=== PATIENT | male | born 1945 | race Caucasian/White ===

== ENCOUNTER → 2023-12-08 08:47 | Outpatient (REF) | payer MEDICARE, BC, SELFPAY ==
[2023-12-08 09:37] LABS: Osmolality Urine 640 mOsm/kg (300-900)
[2023-12-08 09:40] LABS: Osmolality Serum 279 mOsm/kg (275-300)
[2023-12-08 10:02] LABS: Blood Urea Nitrogen 16 mg/dl (9-20); Calcium 9.6 mg/dl (8.4-10.2); Carbon Dioxide 26 mmol/L (22-30); Chloride 97 mmol/L (98-107); Glucose 98 mg/dl (70-99); Potassium 4.6 mmol/L (3.5-5.1); Sodium 132 mmol/L (135-145); eGFR > 60.00
[2023-12-10 23:12] LABS: Oxcarbazepine Metabolite 18 ug/mL (3-35)
== END ==
LOC: REG 08:47
PROVIDERS: ATTENDING PHYSICIAN Specialist; FAMILY PHYSICIAN Family Medicine
DX: E87.1 Hypo-osmolality and hyponatremia (principal); G40.009 Localization-related (focal) (partial) idiopathic epilepsy and epileptic syndromes with seizures of localized onset, not intractable, without status epilepticus
CPT/HCPCS: 36415; 80048; 80183; 83930; 83935

== ENCOUNTER 2024-03-21 07:33 | Inpatient (IN) | payer MEDICARE, BC, SELFPAY ==
--- NOTE | 2024-02-13 11:50 | CM ---
Addendum entered by Mandy Small 03/16/24 08:26:
Referrals sent to both [facility] and [facility]. Navigator will follow up with both after surgery once discharge plan is finalized.
Original Note:
Patient is scheduled for an elective L TKR on 03/21/24. Spoke with patient prior to surgery via telephone. Patient had a R THR (2009) and L THR (2019) at . Reintroduced role of Orthopedic Navigator. Patient reports that he lives alone in a one floor
apartment. There is one step to enter. He currently functions independently. He uses a cane when he walks his dog. He also has a rolling walker, raised toilet seat and hip kit. He has had VN services through [facility] and has been in [facility] for rehab.
PCP is Latisha Alicia.
Discussed orthopedic program and post surgical plans. Reviewed anticipated length of stay and that goal is for him to return home at discharge. Also reviewed outpatient PT. Patient is in agreement with tentative plan but is concerned about going
home since he lives alone and has no one who can provide support. Reassured him that his post op progress will be monitored and if he isn't able to care for him self then an alternative plan will be put in place. If able to go home, he selects
VN. If he needs SNF, he would like to go to [facility].
Patient will complete online education.
Plan: Orthopedic Navigator will remain available to assist with the care of patient and will reassess discharge needs after surgery.
[2024-02-27 12:14] VITALS: BMI 28.7
[2024-02-27 13:32] LABS: Hematocrit 34.8 % (39.0-52.0); Mean Corp Hgb Conc. 34.5 g/dL (33.0-37.0); Mean Corpuscular Hgb 30.8 pg (27.0-31.0); Mean Corpuscular Volume 89.5 fL (80.0-94.0); Mean Platelet Volume 9.8 fL (7.4-10.4); Platelet Count 199 10^3/uL (130-400); Red Blood Cell Count 3.89 10^6/uL (4.70-6.10); Red Cell Dist. Width 13.3 % (11.5-14.5); White Blood Cell Count 4.9 10^3/uL (4.8-10.8)
[2024-02-27 13:59] LABS: ALT (SGPT) 23 U/L (0-50); AST (SGOT) 32 U/L (17-59); Albumin 4.1 g/dl (3.5-5.0); Alkaline Phosphatase 108 U/L (38-126); Blood Urea Nitrogen 15 mg/dl (9-20); Calcium 9.8 mg/dl (8.4-10.2); Carbon Dioxide 23 mmol/L (22-30); Chloride 94 mmol/L (98-107); Estimated Creatinine Clearance 104 ml/min; Glucose 85 mg/dl (70-99); Potassium 5.1 mmol/L (3.5-5.1); Sodium 126 mmol/L (135-145); Total Bilirubin 0.4 mg/dl (0.2-1.3); Total Protein 6.4 g/dl (6.3-8.2); eGFR > 60.00
[2024-02-27 15:17] VITALS: BMI 28.7
--- NOTE | 2024-02-28 09:09 | PTCARENOTE ---
Pt called office, he verified he does take aspirin 650mg every morning for pain management. He was instructed to decrease to 325mg starting 7 days prior to surgery per Mary Mckenzie's instruction. Pt verbalized understanding.
[2024-02-28 09:22] LABS: Glycohemoglobin (HgbA1c) 5.3 % (4.0-5.6)
--- NOTE | 2024-03-19 16:00 | PTCARENOTE ---
Abn Na+, Dr. Castañeda notified, no new requests.
[2024-03-21] VITALS (18 sets, daily range): BP systolic 112–169; BP diastolic 59–92; PULSE 76–79; O2SAT 99
[2024-03-21 07:53] LABS: Glucose - Point of Care 100 mg/dl (70-99)
[2024-03-21] MEDS: NORMOSOL-R 1000 IV ×2 (07:58→12:06)
[2024-03-21] MEDS: CELEBREX 200 MG PO (07:59)
[2024-03-21] MEDS: TYLENOL 650 MG PO ×3 (08:01→19:53)
[2024-03-21 10:22] LABS: Glucose - Point of Care 88 mg/dl (70-99)
[2024-03-21] MEDS: ULTRAM 50 MG PO ×3 (11:37→21:09)
--- NOTE | 2024-03-21 13:16 | PTCARENOTE ---
Pt arrived to [facility] [address] from PACU s/p L TKR. Pt states no pain at this time. R knee aquacel C/D/I, NV intact, IVF infusing. Pt oriented to call yap and room, bed locked and in lowest position, call yap within reach.
[2024-03-21] MEDS: COMPAZINE IV (13:23)
[2024-03-21] MEDS: TYLENOL PO (13:30)
--- NOTE | 2024-03-21 13:53 | CM ---
Patient admitted on this date for L TKR. Request for CM consult for discharge plan of care. Ortho CM previously sent referrals for HH and STR to [facility]. Need to await therapy recommendations.
[2024-03-21] MEDS: TORADOL IV (14:04)
--- NOTE | 2024-03-21 15:16 | PTCARENOTE ---
Pt became hypotensive during PT. Pt put back to bed with head down and legs elevated. BP has improved to 122/65. DEB Mckenzie aware. Midodrine ordered.
[2024-03-21] MEDS: NEURONTIN 300 MG PO ×2 (15:34→21:08)
[2024-03-21] MEDS: COMPAZINE 5 MG IV ×2 (15:35→19:54)
[2024-03-21] MEDS: ANCEF 5 IV (15:35)
[2024-03-21] MEDS: ASPIRIN 325 MG PO (17:24)
[2024-03-21] MEDS: ProAmatine PO (17:30)
[2024-03-21] MEDS: SENOKOT 17.1999999999999993 MG PO (19:53)
[2024-03-21] MEDS: TRILEPTAL 600 MG PO (19:54)
[2024-03-21] MEDS: DECADRON 4 MG PO (19:54)
[2024-03-21] MEDS: COLACE 100 MG PO (19:54)
[2024-03-21] MEDS: BACTROBAN 2% OINTMENT 1 APPLIC NASAL (19:54)
[2024-03-21] MEDS: METAMUCIL, KONSYL 1 PACKET PO (19:54)
[2024-03-21] MEDS: TORADOL 15 MG IV (20:00)
[2024-03-21] MEDS: PROTONIX 40 MG PO (21:08)
[2024-03-21] MEDS: LIPITOR 80 MG PO (21:08)
[2024-03-21] MEDS: LIORESAL 2.5 MG PO (22:37)
[2024-03-22] VITALS (9 sets, daily range): BP systolic 85–154; BP diastolic 52–86; PULSE 79–102; O2SAT 99
[2024-03-22] MEDS: ANCEF 5 IV (00:43)
[2024-03-22] MEDS: TYLENOL PO ×2 (00:49→04:43)
[2024-03-22] MEDS: ProAmatine 5 MG PO (08:17)
[2024-03-22] MEDS: SENOKOT 17.1999999999999993 MG PO ×2 (08:18→19:38)
[2024-03-22] MEDS: FLOMAX 0.400000000000000022 MG PO (08:18)
[2024-03-22] MEDS: TYLENOL 650 MG PO ×4 (08:19→19:38)
[2024-03-22] MEDS: DECADRON 4 MG PO ×2 (08:19→19:38)
[2024-03-22] MEDS: TRILEPTAL 600 MG PO ×2 (08:19→19:38)
[2024-03-22] MEDS: ASPIRIN 325 MG PO (08:19)
[2024-03-22] MEDS: MOBIC 15 MG PO (08:19)
[2024-03-22] MEDS: NEURONTIN 300 MG PO ×3 (08:19→22:12)
[2024-03-22] MEDS: COLACE 100 MG PO ×2 (08:20→19:38)
[2024-03-22] MEDS: ULTRAM 50 MG PO ×3 (08:20→22:12)
[2024-03-22] MEDS: METAMUCIL, KONSYL 1 PACKET PO ×2 (08:20→19:39)
[2024-03-22] MEDS: MIRALAX 17 GRAMS PO (08:20)
[2024-03-22] MEDS: TORADOL 15 MG IV (08:21)
[2024-03-22] MEDS: COMPAZINE 5 MG IV (08:21)
[2024-03-22] MEDS: BACTROBAN 2% OINTMENT 1 APPLIC NASAL ×2 (08:22→19:38)
--- NOTE | 2024-03-22 08:48 | CM ---
Reviewed chart and held rounds with PT, OT and nursing. Patient admitted as planned for elective L TKR. Met with patient at bedside. Confirmed information previously obtained for assessment. Also discussed discharge plans. The plan is for patient to
return home at discharge with VNA or go to [facility] as he lives alone. Reviewed VN services including start of care (tentatively 03/23/24), services to be ordered (PT, SN) and frequency/duration of services. Options list provided and PAC data reviewed.
Patient selects VN.
Patient has a rolling walker, raised toilet seat and hip kit.
VN referral was completed and sent to [facility] through [employer] with request for start of care on 03/23/24. Confirmation received of their ability to accept case. reservation clerk to fax discharge instructions to VN when complete.
Referral also sent to [facility] and will update referral after PT OT sessions today.
Patient will use [facility] if he goes home but if [facility] will switch to SNF pharmacy for discharge prescriptions.
--- NOTE | 2024-03-22 09:44 | W.PN.ORTHO ---
Today's Communication / Plan
-
d/c when stable
Assessment
.
Distal Motor Intact: Yes
Dressing:
Clean, dry and intact.
Assessment:
Orthostasis-Midodrine + IVF
Nausea-resolved w/ current regimen
Spasm-+ Baclofen
Plan
.
Surgery / Date: O/A s/p L TKA Dr. Myers 03/21/24
DVT Prophylaxis: Aspirin
Activity:
Out of bed.
PT/OT
Discharge Plan: SNF
Subjective
.
.:
Patient resting comfortably.
Spasm overnight
Vital Signs and Labs
.
Vital Signs and Labs:
Lab Results
02/27/24 12:11
02/27/24 12:11
Temp Pulse Resp BP Pulse Ox
97.7 F 74 18 138/66 97
03/22/24 07:00 03/22/24 07:00 03/22/24 07:00 03/22/24 08:21 03/22/24 07:00
Non-invasive Hgb result: 9.3
Physical Exam
-
HEENT: No pallor, cyanosis, or jaundice. Throat clear.
NECK: Supple. No JVD.
RESPIRATORY: Lungs clear to auscultation.
CVS: S1, S2 normal. RRR.� No murmur, rub or gallop.
ABDOMEN: Soft, non-tender. No distension. BS+/normal.
EXTREMITIES: strength equal, no calf pain with palpation
DIFFUSION OPERATOR: AOx3. No focal deficits. executive assistant to president grossly intact
--- NOTE | 2024-03-22 09:56 | W.DS.TRANS ---
DC Summary - Delivery Tech
-
Discharge Instructions:
Sleep Apnea Risk Intermediate
Discharge Diagnosis/Procedures O/A s/p L TKA Dr. Myers 03/21/24
Diet Diabetic, Carb Controlled
Activity As tolerated,With assistance,With Walker
Driving Restrictions No driving
Bathing Restrictions OK to Shower
Instructions:
Stand-Alone Forms: Total Hip/Knee Replacement D/C
Changes to Home Medications: Yes
Discharge Medications:
DC Medications w/original date entered in [employer]
multivitamin with folic acid 400 mcg tablet (Tab-A-Riana) 1 tab PO DAILY@1200 Supplement ##0 06/27/19
psyllium husk 0.4 gram capsule (Fiber (psyllium husk)) 0.4 gm PO BID Constipation 04/28/20
atorvastatin 80 mg tablet 80 mg PO HS High Cholesterol 02/20/24
omega-3 fatty acids 500 mg capsule 500 mg PO BID Supplement 02/20/24
oxcarbazepine 600 mg tablet,extended release 24 hr 600 mg PO BID Seizures 02/20/24
polyethylene glycol 3350 17 gram oral powder packet (Miralax) 17 g PO DAILY Constipation 02/20/24
tirzepatide 15 mg/0.5 mL subcutaneous pen injector (Mounjaro) 15 mg SC QWEEK Diabetes 02/20/24
vilazodone 40 mg tablet 40 mg PO DAILY Depression 02/20/24
mupirocin 2 % topical ointment 1 applic topical BID infection prevention #1 tube 02/27/24
tamsulosin 0.4 mg capsule 0.4 mg PO HS #7 caps 02/27/24
Saccharomyces boulardii 250 mg capsule (Florastor) 250 mg PO BID #1 cap 03/22/24
acetaminophen 325 mg capsule (Tylenol) 650 mg (2 x 325 mg) PO QID #2 caps 03/22/24
aspirin 325 mg tablet 325 mg PO DAILY blood clot prevention #1 tab 03/22/24
baclofen 10 mg tablet 10 mg PO HS spasm #7 tabs 03/22/24
cefadroxil 500 mg capsule 500 mg PO BID infection prevention #14 caps 03/22/24
docusate sodium 100 mg capsule (Colace) 100 mg PO BID stool softner #1 cap 03/22/24
famotidine 20 mg tablet 20 mg PO HS GI prophylaxis #30 tabs 03/22/24
gabapentin 300 mg capsule 300 mg PO HS sleep/pain #10 caps 03/22/24
lisinopril 10 mg tablet 10 mg PO DAILY #30 tabs 03/22/24
magnesium hydroxide 400 mg/5 mL oral suspension (Milk of Magnesia) 30 ml PO HS PRN Constipation #1 mL 03/22/24
meloxicam 15 mg tablet 15 mg PO DAILY anti-inflammatory #14 tabs 03/22/24
ondansetron 4 mg disintegrating tablet 4 mg PO Q6H PRN n/v #20 tabs 03/22/24
sennosides 8.6 mg tablet (Senokot) 17.2 mg (2 x 8.6 mg) PO BID laxative #2 tabs 03/22/24
tramadol 50 mg tablet 50 mg PO Q6H PRN 1 tab moderate pain, 2 if severe #30 tabs 03/22/24
Home Medication Changes
baclofen 10 mg tablet 10 mg PO HS spasm #7 tabs 03/22/24
cefadroxil 500 mg capsule 500 mg PO BID infection prevention #14 caps 03/22/24
famotidine 20 mg tablet 20 mg PO HS GI prophylaxis #30 tabs 03/22/24
gabapentin 300 mg capsule 300 mg PO HS sleep/pain #10 caps 03/22/24
lisinopril 10 mg tablet 10 mg PO DAILY #30 tabs 03/22/24
meloxicam 15 mg tablet 15 mg PO DAILY anti-inflammatory #14 tabs 03/22/24
ondansetron 4 mg disintegrating tablet 4 mg PO Q6H PRN n/v #20 tabs 03/22/24
tramadol 50 mg tablet 50 mg PO Q6H PRN 1 tab moderate pain, 2 if severe #30 tabs 03/22/24
Pending Results: No
[2024-03-22] MEDS: NSS 250 IV (10:34)
[2024-03-22] MEDS: LIORESAL 10 MG PO ×2 (10:34→19:38)
[2024-03-22] MEDS: DECADRON 2 MG IV (10:34)
[2024-03-22] MEDS: COMPAZINE IV (20:36)
[2024-03-22] MEDS: PROTONIX 40 MG PO (22:12)
[2024-03-22] MEDS: LIPITOR 80 MG PO (22:12)
[2024-03-23] VITALS (7 sets, daily range): BP systolic 103–141; BP diastolic 61–75; PULSE 66–110; O2SAT 99
[2024-03-23] MEDS: TYLENOL PO ×2 (00:59→23:22)
[2024-03-23] MEDS: TYLENOL 650 MG PO ×5 (03:39→19:57)
[2024-03-23] MEDS: MIRALAX 17 GRAMS PO (08:15)
[2024-03-23] MEDS: METAMUCIL, KONSYL 1 PACKET PO ×2 (08:15→19:58)
[2024-03-23] MEDS: FLOMAX 0.400000000000000022 MG PO (08:18)
[2024-03-23] MEDS: ASPIRIN 325 MG PO (08:18)
[2024-03-23] MEDS: COMPAZINE 5 MG PO (08:18)
[2024-03-23] MEDS: SENOKOT 17.1999999999999993 MG PO ×2 (08:18→19:59)
[2024-03-23] MEDS: DECADRON 4 MG PO ×2 (08:19→19:58)
[2024-03-23] MEDS: COLACE 100 MG PO ×2 (08:19→19:58)
[2024-03-23] MEDS: LIORESAL 10 MG PO ×2 (08:19→19:59)
[2024-03-23] MEDS: ULTRAM 50 MG PO (08:19)
[2024-03-23] MEDS: MOBIC 15 MG PO (08:19)
[2024-03-23] MEDS: NEURONTIN 300 MG PO ×2 (08:19→22:40)
[2024-03-23] MEDS: TRILEPTAL 600 MG PO ×2 (08:20→19:58)
[2024-03-23] MEDS: COMPAZINE IV ×2 (08:20→19:58)
--- NOTE | 2024-03-23 09:15 | CM ---
Addendum entered by VIRGEN Colon 03/23/24 09:40:
SPoke to Crystal in admissions at [facility]. SHe will have bed Tuesday for patient.
Report [phone]
fax [phone]
IMM done Tuesday.
Original Note:
Reviewed chart and held rounds with PT, OT and nursing. Patient admitted as planned for elective L TKR. Met with patient at bedside. Confirmed information previously obtained for assessment. Also discussed discharge plans. The plan is for patient to
go to SNF rehab at [facility].
Patient has a rolling walker, raised toilet seat and hip kit.
Referral was updated to [facility] yesterday.
Patient will use [facility] if he goes home but if [facility] will switch to SNF pharmacy for discharge prescriptions.
--- NOTE | 2024-03-23 10:44 | W.PN.ORTHO ---
Today's Communication / Plan
-
d/c am if stable
Assessment
.
Distal Motor Intact: Yes
Dressing:
Clean, dry and intact.
Assessment:
Orthostasis-Midodrine + IVF-resolved
Nausea-resolved w/ current regimen
Spasm-+ Baclofen-resolved
Plan
.
Surgery / Date: O/A s/p L TKA Dr. Myers 03/21/24
DVT Prophylaxis: Aspirin
Activity:
Out of bed.
PT/OT
Discharge Plan: SNF
Subjective
.
.:
Patient resting comfortably.
Vital Signs and Labs
.
Vital Signs and Labs:
Lab Results
02/27/24 12:11
02/27/24 12:11
Temp Pulse Resp BP Pulse Ox
97.4 F 74 17 131/74 98
03/23/24 07:48 03/23/24 07:48 03/23/24 07:48 03/23/24 10:08 03/23/24 08:20
Non-invasive Hgb result: 10.6
Physical Exam
-
HEENT: No pallor, cyanosis, or jaundice. Throat clear.
NECK: Supple. No JVD.
RESPIRATORY: Lungs clear to auscultation.
CVS: S1, S2 normal. RRR.� No murmur, rub or gallop.
ABDOMEN: Soft, non-tender. No distension. BS+/normal.
EXTREMITIES: strength equal, no calf pain with palpation
DIE STAMPING PRESS OPERATOR: AOx3. No focal deficits. python java developer grossly intact
--- NOTE | 2024-03-23 10:46 | W.PN.UPDATE ---
Update Note
Progress Note Update
*Ultram sent to [facility] pharmacy
*d/c instructions and med rec complete
*D/c summary dictated
[2024-03-23] MEDS: ProAmatine 5 MG PO ×2 (12:18→17:57)
[2024-03-23] MEDS: LIPITOR 80 MG PO (22:41)
[2024-03-23] MEDS: PROTONIX 40 MG PO (22:41)
[2024-03-24] MEDS: TYLENOL PO (04:51)
[2024-03-24] MEDS: ProAmatine PO (07:39)
[2024-03-24] MEDS: MIRALAX 17 GRAMS PO (07:39)
[2024-03-24] MEDS: MILK OF MAGNESIA 30 ML PO (07:40)
[2024-03-24] MEDS: SENOKOT 17.1999999999999993 MG PO (07:41)
[2024-03-24] MEDS: TYLENOL 650 MG PO ×2 (07:41→11:10)
[2024-03-24] MEDS: TRILEPTAL 600 MG PO (07:41)
[2024-03-24] MEDS: FLOMAX 0.400000000000000022 MG PO (07:41)
[2024-03-24] MEDS: ASPIRIN 325 MG PO (07:41)
[2024-03-24] MEDS: LIORESAL 10 MG PO (07:42)
[2024-03-24] MEDS: COMPAZINE IV (07:42)
[2024-03-24] MEDS: COLACE 100 MG PO (07:42)
[2024-03-24] MEDS: MOBIC 15 MG PO (07:42)
[2024-03-24] MEDS: DECADRON 4 MG PO (07:42)
[2024-03-24] MEDS: METAMUCIL, KONSYL 1 PACKET PO (07:47)
[2024-03-24 08:07] VITALS: BP 150/75
--- NOTE | 2024-03-24 08:07 | W.PN.UPDATE ---
Update Note
Progress Note Update
Mr. Coyle is POD3 following his left total knee arthroplasty performed by Dr. Myers. He is resting comfortably in his chair this morning. He reports he is doing well, and his pain is well controlled at present. He is scheduled for transfer to [facility] this afternoon.
Surgical dressing clean, dry and intact. No significant tenderness to palpation about the knee. Calf soft and nontender. NVID.
Ok for dc from orthopedic perspective. Orders in. Patient to follow up outpatient at 2 weeks post-op.
[2024-03-24 09:15] VITALS: BP 130/76
[2024-03-24 11:05] VITALS: BP 151/79
--- NOTE | 2024-03-24 12:56 | CM ---
Patient has been medically cleared for discharge to [facility]. Transport scheduled for 1:00PM.
== END 2024-03-24 11:46 | DRG 470 ==
LOC: 2 SOUTH 07:33
PROVIDERS: ADMITTING PHYSICIAN Orthopaedic Surgery; FAMILY PHYSICIAN Family Medicine
PROC: 0SRD069 Replacement of Left Knee Joint with Oxidized Zirconium on Polyethylene Synthetic Substitute, Cemented, Open Approach (ICD-10-PCS; 2024-03-21)
DX: M17.12 Unilateral primary osteoarthritis, left knee (principal)
CPT/HCPCS: 36415; 73560; 80053; 82962; 83036; 85027; 87070; 97110; 97116; 97162; 97166; 97530; 97535; C1713; C1776

== ENCOUNTER 2024-03-25 09:35 | Emergency (ER) | payer MEDICARE, BC, SELFPAY ==
[2024-03-25] VITALS (24 sets, daily range): BP systolic 101–173; BP diastolic 41–108
[2024-03-25 09:56] LABS: % Basophils 0.6 % (0-2); % Eosinophils 4.1 % (0-6); % Immature Granulocytes 0.4 % (0-0.5); % Lymphocytes 16.8 % (20.5-51.1); % Neutrophils 74.1 % (42.2-75.2); Absolute Eosinophils 0.3 10^3/uL (0-0.7); Absolute Lymphocytes 1.1 10^3/uL (1.2-3.4); Absolute Monocytes 0.3 10^3/uL (0.1-0.6); Hematocrit 22.5 % (39.0-52.0); Mean Corp Hgb Conc. 35.6 g/dL (33.0-37.0); Mean Corpuscular Volume 87.2 fL (80.0-94.0); Mean Platelet Volume 9.4 fL (7.4-10.4); Nucleated Red Blood Cells % 0 % (-); Platelet Count 176 10^3/uL (130-400); Red Blood Cell Count 2.58 10^6/uL (4.70-6.10); Red Cell Dist. Width 14.1 % (11.5-14.5); White Blood Cell Count 6.8 10^3/uL (4.8-10.8)
[2024-03-25 10:08] LABS: ALT (SGPT) 22 U/L (0-50); AST (SGOT) 33 U/L (17-59); Alkaline Phosphatase 76 U/L (38-126); Blood Urea Nitrogen 12 mg/dl (9-20); Calcium 8.8 mg/dl (8.4-10.2); Carbon Dioxide 22 mmol/L (22-30); Chloride 93 mmol/L (98-107); Estimated Creatinine Clearance 104 ml/min; Glucose 126 mg/dl (70-99); Potassium 3.8 mmol/L (3.5-5.1); Sodium 124 mmol/L (135-145); Total Bilirubin 0.6 mg/dl (0.2-1.3); Total Protein 5.3 g/dl (6.3-8.2); eGFR > 60.00
--- NOTE | 2024-03-25 11:20 | ED.GENMED ---
History of Present Illness
General
Chief Complaint: Fainting/Passed Out
Source: patient
Time Seen by Provider: 03/25/24 09:58
Travel History
Have you had any contact with someone who has COVID-19?: No
Do you have any symptoms of coronavirus? Fever > 100 degrees, chills, cough, shortness of breath, sore throat, loss of taste or smell, muscle aches, or headache?: No
History of Present Illness
History of Present Illness:
79-year-old male presents to the emergency room after having what sound like a syncopal episode at physical therapy. Patient is at [facility] receiving physical therapy and rehab after having a knee replacement. He was discharged yesterday. Surgery
was on March 21. Patient was evidently urinating at the time. He has a history of 1 seizure many years ago for which he takes Trileptal. It does not sound like he had tonic-clonic type activity today. He had no incontinence or tongue injury.
Patient feels weak but back to his baseline.
Past History
Past History
ED Past Medical History: Hypercholesterolemia, Seizures and Other (Prostate hypertrophy, osteoarthritis, degenerative joint disease)
ED Past Surgical History: Orthopedic (Right hip arthroplasty, left total hip), Tonsilectomy and Other (Left eye surgery, cataract surgery)
Social History
Tobacco: Non-smoker
Alcohol: None
Drug: None
Living: with family
Phy Exam
Physical Exam
Physical Exam:
General: Awake, Alert, Oriented X3. Appears chronically ill, pale complexion
Vitals: Borderline blood pressure
Head: Atraumatic
Eyes: Pupils equal, EOMI
Throat: Airway intact, no exudates
Neck: Trachea midline
Lungs: Clear and equal b/l
Heart: Regular rate, no murmurs
Abd: Soft, Nontender, No pulsatile mass
Rectal: Heme-negative brown stool
Neuro: Nonfocal
Skin: Warm, dry, no rash
Extremities: Dressing intact left knee. Skin around the dressing appears normal, there is no erythema or unexpected swelling
Course
Orders/Labs/Results
Orders:
Orders
03/25/24 09:37
Electrocardiogram (*1) Urgent
Reason for Study: Syncope
03/25/24 09:38
EKG- Treatment ONCE
03/25/24 09:47
Complete Blood Count/With Diff Urgent
Comprehensive Metabolic Panel Urgent
03/25/24 11:20
Blood Bank Products [* Blood Bank Products] Urgent
Blood Bank Products: *Packed RBC Leuko(PRBC's)
Quantity: 1
Transfuse Today: Yes
Reason: Anemia
03/25/24 11:27
Type+Screen Urgent
03/25/24 13:46
Oxycodone [Roxicodone] 5 mg PO NOW STA
Abnormal Lab Results
03/25/24 03/25/24
09:47 11:27
RBC 2.58 L 10^6/uL
(4.70-6.10)
Hgb 8.0 L g/dL
(13.0-18.0)
Hct 22.5 L %
(39.0-52.0)
Absolute Lymphs (auto) 1.1 L 10^3/uL
(1.2-3.4)
Lymphocytes % 16.8 L %
(20.5-51.1)
Sodium 124 L mmol/L
(135-145)
Chloride 93 L mmol/L
(98-107)
Glucose 126 H mg/dl
(70-99)
Total Protein 5.3 L g/dl
(6.3-8.2)
Albumin 3.0 L g/dl
(3.5-5.0)
Crossmatch IS Only See Detail
03/25/24 09:47
03/25/24 09:47
Vital Signs
Initial and Last Documented VS:
Initial Vital Signs
Temp Pulse Resp BP Pulse Ox
97.8 F 67 18 119/47 95
03/25/24 09:38 03/25/24 09:38 03/25/24 09:38 03/25/24 09:38 03/25/24 09:38
Last Documented Vital Signs
Temp Pulse Resp BP Pulse Ox
97.9 F 63 14 120/46 96
03/25/24 14:09 03/25/24 14:09 03/25/24 14:09 03/25/24 14:09 03/25/24 14:09
MDM/Problems Addressed
Differential Diagnosis Includes:
CVA, seizure, ventricular dysrhythmia, vasovagal event
MDM/Problems Addressed:
Patient presents after having a event where he collapsed at home. His thought he might have been in cardiac arrest and did CPR. He arrives to the emergency room confused. Stroke alert was called. CT of the head shows nothing acute.
Neurology evaluation performed by Dr. Vallejo who questions whether this could have been a ischemic event, seizure or some other reason to have a loss of consciousness. Patient has slowly seem to return to his baseline. He does not typically seek
medical care. Patient will be hospitalized for monitoring of possible dysrhythmia versus seizure.
I was ultimately able to discuss what happened with the patient's . She states that the patient got up to walk into the other room when he collapsed. Prior to collapsing he seemed to yell out. His arms became flexed momentarily but he did not
have rhythmic shaking. He has had episodes in the past where he becomes dizzy and lightheaded and they have attributed this to 'low blood pressure'.
Given this information I think it is unlikely the patient had an ischemic event. The above scenario could be consistent with either seizure-like activity or dysrhythmia.
*Radiology
Radiology exam reviewed: radiology read reviewed
*Pulse Oximetry
Patient hypoxic: no
*EKG
Interpreted by ED Provider?: Yes
Heart Rate: 69
Rate: normal
Rhythm: sinus
[place]: normal axis
Interval: normal interval
QRS Pattern: normal QRS
Ischemia: no ischemia
*Software Testing Specialist Interpretation
Rate: normal
Interpretation: normal
Rhythm: sinus
*Critical Care Note
Total Time (30-74mins, 75-104mins- exclusive of procedures): 35 min
comment:
Critical care statement: A total of 35 minutes of critical care time was provided for this patient. This includes management of unstable vital signs, evaluation of the patient at bedside, reviewing the patient's pertinent medical records, discussion
with consultants, review of old EKGs and review of pertinent medical records. This time with separate from time utilized to perform the aforementioned documented procedures
ED Attending Note
-
Portions of this chart may have been created with voice recognition software.� Occasional wrong word or��sound alike� substitutions may have occurred due to the inherent limitations of voice recognition software.
Discharge Plan
Departure
Prescriptions:
No Action
multivitamin with folic acid [Tab-A-Riana] 1 TABLET tablet
1 tab PO DAILY@1200 Qty: 0
psyllium husk [Fiber (psyllium husk)] 0.4 GM capsule
0.4 gm PO BID
polyethylene glycol 3350 [Miralax] 17 gram Powder In Packet
17 g PO DAILY
vilazodone 40 mg Tablet
40 mg PO DAILY
Mounjaro 15 mg/0.5 mL Pen Injector
15 mg SC QWEEK
omega-3 fatty acids 500 mg Capsule
500 mg PO BID
Hold Instructions: Resume on 03/29/24.
atorvastatin 80 mg Tablet
80 mg PO HS
oxcarbazepine 600 mg Tablet Extended Release 24 Hr
600 mg PO BID
tamsulosin 0.4 mg capsule
0.4 mg PO HS Qty: 7 0RF
Rx Instructions:
begin 3 nights b/f surgery
aspirin 325 mg tablet
325 mg PO DAILY Qty: 1 0RF
Rx Instructions:
Take with food
docusate sodium [Colace] 100 mg capsule
100 mg PO BID Qty: 1 0RF
Saccharomyces boulardii [Florastor] 250 mg capsule
250 mg PO BID Qty: 1 0RF
sennosides [Senokot] 8.6 mg tablet
17.2 mg PO BID Qty: 2 0RF
lisinopril 10 MG tablet
10 mg PO DAILY Qty: 30 0RF
Rx Instructions:
hold systolic blood pressure <130 if taking Ultram
famotidine 20 mg tablet
20 mg PO HS Qty: 30 0RF
Rx Instructions:
post-op
meloxicam 15 mg tablet
15 mg PO DAILY Qty: 14 0RF
Rx Instructions:
take with food
post-op
gabapentin 300 mg capsule
300 mg PO HS Qty: 10 0RF
baclofen 10 mg tablet
10 mg PO HS Qty: 10 0RF
acetaminophen [Tylenol] 325 mg Tablet
650 mg PO Q4HPRN PRN (Reason: mild pain)
tramadol 50 mg Tablet
100 mg PO Q6HPRN PRN (Reason: severe pain)
magnesium hydroxide [Milk of Magnesia] 400 mg/5 mL Suspension
2,400 mg PO [id number] PRN (Reason: if no bm on 3rd day)
bisacodyl [Dulcolax (bisacodyl)] 10 mg Suppository
10 mg MO DAILYPRN PRN (Reason: if no bm aftr mom or day 5)
tramadol 50 mg tablet
50 mg PO Q6HPRN PRN (Reason: moderate pain)
Rx Instructions:
ongoing therapy
cefadroxil 500 mg capsule
500 mg PO BID
Patient Comments:
patient to start 03/24/24
mupirocin 2 % ointment
1 applic topical BID
ondansetron [ondansetron] 4 mg tablet,disintegrating
4 mg PO Q6HPRN PRN (Reason: n/v)
Rx Instructions:
take 1/2h b/f pain med if recurrent nausea
allow to dissolve in mouth w/o water
acetaminophen [Tylenol] 325 mg capsule
650 mg PO TID
Referrals:
Latisha Alicia MD [Family Provider] -
Interventions
Interventions:
*Risk Screen - Suicide Last Done: 03/25/24 09:38
*General Assessment Last Done: 03/25/24 09:38
*Neglect/Abuse Screening Last Done: 03/25/24 09:38
*ED COVID-19 Vaccine History Last Done: 03/25/24 09:42
ED- Cardiac Assessment Last Done: 03/25/24 09:54
ED- Neurological Assessment Last Done: 03/25/24 09:54
Discharge Date and Time
Print Language: PERSIAN
[2024-03-25] MEDS: ROXICODONE 5 MG PO (13:50)
--- NOTE | 2024-03-25 15:31 | ED.GENMED ---
History of Present Illness
<DO Ivonne Willis Last Filed: 03/27/24 16:30>
General
Chief Complaint: Fainting/Passed Out
Source: patient and records
Time Seen by Provider: 03/25/24 09:58
Travel History
Have you had any contact with someone who has COVID-19?: No
Do you have any symptoms of coronavirus? Fever > 100 degrees, chills, cough, shortness of breath, sore throat, loss of taste or smell, muscle aches, or headache?: No
History of Present Illness
History of Present Illness:
79-year-old male sent to the emergency department after collapsing in the bathroom. Unclear if the patient had complete loss of consciousness or just became weak and fell down. He has no complaints at the time of my evaluation. Patient was
recently discharged from the hospital after having a total knee replacement. Patient was with physical therapist when this event occurred.
Past History
<DO Ivonne Willis Last Filed: 03/27/24 16:30>
Past History
ED Past Medical History: Hypercholesterolemia, Seizures and Other (Prostate hypertrophy, osteoarthritis, degenerative joint disease)
ED Past Surgical History: Orthopedic (Right hip arthroplasty, left total hip), Tonsilectomy and Other (Left eye surgery, cataract surgery)
Social History
Tobacco: Non-smoker
Alcohol: None
Drug: None
Living: with family
Phy Exam
<DO Ivonne Willis Last Filed: 03/27/24 16:30>
Physical Exam
Physical Exam:
General: Awake, Alert, Oriented X3. No acute distress.
Vitals: unremarkable
Head: Atraumatic
Eyes: Pupils equal, EOMI
Throat: Airway intact, no exudates
Neck: Trachea midline
Lungs: Clear and equal b/l
Heart: Regular rate, no murmurs
Abd: Soft, Nontender, No pulsatile mass
Neuro: Nonfocal
Skin: Warm, dry, no rash,, pale complexion
Extremities: pulses equal b/l, no edema. Dressing intact, no evidence of cellulitis
Course
Julietalt;Samir Gaffney DO - Last Filed: 03/27/24 16:30>
Orders/Labs/Results
Orders:
Orders
03/25/24 09:37
Electrocardiogram (*1) Urgent
Reason for Study: Syncope
03/25/24 09:38
EKG- Treatment ONCE
03/25/24 09:47
Complete Blood Count/With Diff Urgent
Comprehensive Metabolic Panel Urgent
03/25/24 11:20
Blood Bank Products [* Blood Bank Products] Urgent
Blood Bank Products: *Packed RBC Leuko(PRBC's)
Quantity: 1
Transfuse Today: Yes
Reason: Anemia
03/25/24 11:27
Type+Screen Urgent
03/25/24 13:46
Oxycodone [Roxicodone] 5 mg PO NOW STA
03/25/24 20:23
CefTRIAXone [Rocephin] 1,000 mg IV NOW STA
03/25/24 21:02
Tramadol HCl [Ultram] 50 mg .ROUTE .STK-MED ONE
03/25/24 21:04
Tramadol HCl [Ultram] 50 mg PO NOW STA
Abnormal Lab Results
03/25/24 03/25/24
09:47 11:27
RBC 2.58 L 10^6/uL
(4.70-6.10)
Hgb 8.0 L g/dL
(13.0-18.0)
Hct 22.5 L %
(39.0-52.0)
Absolute Lymphs (auto) 1.1 L 10^3/uL
(1.2-3.4)
Lymphocytes % 16.8 L %
(20.5-51.1)
Sodium 124 L mmol/L
(135-145)
Chloride 93 L mmol/L
(98-107)
Glucose 126 H mg/dl
(70-99)
Total Protein 5.3 L g/dl
(6.3-8.2)
Albumin 3.0 L g/dl
(3.5-5.0)
Crossmatch IS Only See Detail
03/25/24 09:47
03/25/24 09:47
Vital Signs
Initial and Last Documented VS:
Initial Vital Signs
Temp Pulse Resp BP Pulse Ox
97.8 F 67 18 119/47 95
03/25/24 09:38 03/25/24 09:38 03/25/24 09:38 03/25/24 09:38 03/25/24 09:38
Last Documented Vital Signs
Temp Pulse Resp BP Pulse Ox
98 F 81 14 127/75 97
03/25/24 16:23 03/25/24 22:00 03/25/24 18:06 03/25/24 22:00 03/25/24 22:00
<Don Saeed MD - Last Filed: 03/26/24 00:20>
Orders/Labs/Results
Orders:
Orders
03/25/24 09:37
Electrocardiogram (*1) Urgent
Reason for Study: Syncope
03/25/24 09:38
EKG- Treatment ONCE
03/25/24 09:47
Complete Blood Count/With Diff Urgent
Comprehensive Metabolic Panel Urgent
03/25/24 11:20
Blood Bank Products [* Blood Bank Products] Urgent
Blood Bank Products: *Packed RBC Leuko(PRBC's)
Quantity: 1
Transfuse Today: Yes
Reason: Anemia
03/25/24 11:27
Type+Screen Urgent
03/25/24 13:46
Oxycodone [Roxicodone] 5 mg PO NOW STA
03/25/24 20:23
CefTRIAXone [Rocephin] 1,000 mg IV NOW STA
03/25/24 21:02
Tramadol HCl [Ultram] 50 mg .ROUTE .STK-MED ONE
03/25/24 21:04
Tramadol HCl [Ultram] 50 mg PO NOW STA
Abnormal Lab Results
03/25/24 03/25/24
09:47 11:27
RBC 2.58 L 10^6/uL
(4.70-6.10)
Hgb 8.0 L g/dL
(13.0-18.0)
Hct 22.5 L %
(39.0-52.0)
Absolute Lymphs (auto) 1.1 L 10^3/uL
(1.2-3.4)
Lymphocytes % 16.8 L %
(20.5-51.1)
Sodium 124 L mmol/L
(135-145)
Chloride 93 L mmol/L
(98-107)
Glucose 126 H mg/dl
(70-99)
Total Protein 5.3 L g/dl
(6.3-8.2)
Albumin 3.0 L g/dl
(3.5-5.0)
Crossmatch IS Only See Detail
03/25/24 09:47
03/25/24 09:47
Vital Signs
Initial and Last Documented VS:
Initial Vital Signs
Temp Pulse Resp BP Pulse Ox
97.8 F 67 18 119/47 95
03/25/24 09:38 03/25/24 09:38 03/25/24 09:38 03/25/24 09:38 03/25/24 09:38
Last Documented Vital Signs
Temp Pulse Resp BP Pulse Ox
98 F 81 14 127/75 97
03/25/24 16:23 03/25/24 22:00 03/25/24 18:06 03/25/24 22:00 03/25/24 22:00
<Samir Gaffney DO - Last Filed: 03/27/24 16:30>
MDM/Problems Addressed
Differential Diagnosis Includes:
post-op anemia, gi bleed, iron deficiency
MDM/Problems Addressed:
Pt presents after a syncopal episode. No sob. No chest pain. Pt found to have hgb of 8. Likely post-op anemia. Pt is heme negative. Will transfuse one unit and pt should be stable for d/c
Of note. There is a previous note started by myself which contains the correct history and physical but the medical desicion making is on the incorrect chart and does not reflect the medical decision making for Ag Coyle. This chart reflects the
correct MDM.
<Samir Gaffney DO - Last Filed: 03/27/24 16:30>
*Pulse Oximetry
Patient hypoxic: no
*EKG
Interpreted by ED Provider?: Yes
Interpretation: normal
Heart Rate: 69
Rate: normal
Rhythm: sinus
[place]: normal axis
Interval: normal interval
QRS Pattern: normal QRS
Ischemia: no ischemia
*Traffic Inspector Interpretation
Rate: normal
Interpretation: normal
Rhythm: sinus
*Critical Care Note
Total Time (30-74mins, 75-104mins- exclusive of procedures): Not Applicable
<Don Saeed MD - Last Filed: 03/26/24 00:20>
Update Note
Update Note:
UPDATE (Don Saeed MD)
I saw and examined patient after signout and reviewed all labs and imaging
Focused HPI: 79-year-old male who had a recent knee replacement and has been at [facility] since presents to the emergency room after syncopal episode during PT. No chest pain or palpitations or any other issues.
Physical exam: Awake alert not in distress. No cardiac rubs gallops or murmurs. Lungs clear to auscultation bilaterally. Abdomen nontender.
Medical Decision Making: Patient was seen here in the ER after a syncopal event while at rehab after recent knee surgery. He had lab work sent off which showed a hemoglobin of 8.0 which is down from preoperative value of 12. Suspect syncope was
related to symptomatic anemia. He is currently pending blood transfusion with plan ultimately for discharge back to rehab and repeat outpatient labs. On reassessment after blood transfusion patient is feeling much better he has no dizziness and is
able to get up and ambulate without any lightheadedness. His vital signs have been stable.
Unfortunately he has been unable to urinate today�he tells me he has not urinated since yesterday and he tried to urinate multiple times here unsuccessfully. Nurse stood him up and attempted to have him use the urinal and he was only able to pass
about 100 cc of urine. His postvoid residual volume was 680 cc of urine. Nurse attempted to place a Cartagena catheter unsuccessfully. I attempted to place a Cartagena catheter x 2 unsuccessfully. Case discussed with urology who came to the bedside and
placed a Cartagena catheter. They recommended single dose of Rocephin here and will follow-up in the office for trial of void. Will discharge back to rehab. Patient happy with this plan.
ED Attending Note
<Samir Gaffney, DO - Last Filed: 03/27/24 16:30>
-
Portions of this chart may have been created with voice recognition software.� Occasional wrong word or��sound alike� substitutions may have occurred due to the inherent limitations of voice recognition software.
Discharge Plan
Departure
Patient Disposition: Home (Routine Discharge)
Date of Disposition: 03/25/24
Time of Disposition: 20:11
Patient with high blood pressure during this ER visit?: No
Condition: Good
Discharge Problem:
Syncope, Anemia, Acute urinary retention
Instructions: Anemia caused by low iron, Syncope (Fainting) (DC), Urinary retention - Discharge instructions
Prescriptions:
No Action
multivitamin with folic acid [Tab-A-Riana] 1 TABLET tablet
1 tab PO DAILY@1200 Qty: 0
psyllium husk [Fiber (psyllium husk)] 0.4 GM capsule
0.4 gm PO BID
polyethylene glycol 3350 [Miralax] 17 gram Powder In Packet
17 g PO DAILY
vilazodone 40 mg Tablet
40 mg PO DAILY
Mounjaro 15 mg/0.5 mL Pen Injector
15 mg SC QWEEK
omega-3 fatty acids 500 mg Capsule
500 mg PO BID
Hold Instructions: Resume on 03/29/24.
atorvastatin 80 mg Tablet
80 mg PO HS
oxcarbazepine 600 mg Tablet Extended Release 24 Hr
600 mg PO BID
tamsulosin 0.4 mg capsule
0.4 mg PO HS Qty: 7 0RF
Rx Instructions:
begin 3 nights b/f surgery
aspirin 325 mg tablet
325 mg PO DAILY Qty: 1 0RF
Rx Instructions:
Take with food
docusate sodium [Colace] 100 mg capsule
100 mg PO BID Qty: 1 0RF
Saccharomyces boulardii [Florastor] 250 mg capsule
250 mg PO BID Qty: 1 0RF
sennosides [Senokot] 8.6 mg tablet
17.2 mg PO BID Qty: 2 0RF
lisinopril 10 MG tablet
10 mg PO DAILY Qty: 30 0RF
Rx Instructions:
hold systolic blood pressure <130 if taking Ultram
famotidine 20 mg tablet
20 mg PO HS Qty: 30 0RF
Rx Instructions:
post-op
meloxicam 15 mg tablet
15 mg PO DAILY Qty: 14 0RF
Rx Instructions:
take with food
post-op
gabapentin 300 mg capsule
300 mg PO HS Qty: 10 0RF
baclofen 10 mg tablet
10 mg PO HS Qty: 10 0RF
acetaminophen [Tylenol] 325 mg Tablet
650 mg PO Q4HPRN PRN (Reason: mild pain)
tramadol 50 mg Tablet
100 mg PO Q6HPRN PRN (Reason: severe pain)
magnesium hydroxide [Milk of Magnesia] 400 mg/5 mL Suspension
2,400 mg PO [id number] PRN (Reason: if no bm on 3rd day)
bisacodyl [Dulcolax (bisacodyl)] 10 mg Suppository
10 mg MS DAILYPRN PRN (Reason: if no bm aftr mom or day 5)
tramadol 50 mg tablet
50 mg PO Q6HPRN PRN (Reason: moderate pain)
Rx Instructions:
ongoing therapy
cefadroxil 500 mg capsule
500 mg PO BID
Patient Comments:
patient to start 03/24/24
mupirocin 2 % ointment
1 applic topical BID
ondansetron [ondansetron] 4 mg tablet,disintegrating
4 mg PO Q6HPRN PRN (Reason: n/v)
Rx Instructions:
take 1/2h b/f pain med if recurrent nausea
allow to dissolve in mouth w/o water
acetaminophen [Tylenol] 325 mg capsule
650 mg PO TID
Referrals:
Latisha Alicia MD [Family Provider] - Follow up in 2-3 days
Nacho Lyons MD [Active] - Call in 1-3 days for appt (Call urology tomorrow to schedule follow up this week. )
Activity Restrictions/Additional Instructions:
Thank you for visiting the Emergency Department at [facility].
1. Please schedule a follow up appointment as directed. Call first thing tomorrow morning to make an appointment.
2. If indicated, please take your medications as instructed and indicated on discharge paperwork.
3. If any of your symptoms do not improve, or persist, or become more severe within 6-12 hours, please return to the emergency department for further care.
4. Please return to the emergency department if you develop a headache, neck pain/stiffness, fever greater than 100.4F, chest pain, shortness of breath, persistent nausea, vomiting, slurred speech, difficulty walking, numbness/tingling, weakness,
signs of infection or any other symptoms that are worrisome to you.
Please call [phone] if you have any questions.
Interventions
Interventions:
*Risk Screen - Suicide Last Done: 03/25/24 09:38
*General Assessment Last Done: 03/25/24 09:38
*Neglect/Abuse Screening Last Done: 03/25/24 09:38
ED- Fall Risk Assessment Last Done: 03/25/24 22:38
*ED COVID-19 Vaccine History Last Done: 03/25/24 09:42
*Nursing Disposition Last Done: 03/25/24 22:38
ED- Cardiac Assessment Last Done: 03/25/24 09:54
ED- Neurological Assessment Last Done: 03/25/24 09:54
Discharge Date and Time
Discharge Date/Time: 03/25/24 22:42
Print Language: SERBIAN
--- NOTE | 2024-03-25 20:01 | W.PN.URO.CBU ---
Today's Communication / Plan
-
Procedure:
Urethral dilation with filiforms and followers after attempt with 16 Fr Cartagena and 20 Fr Coude failed
Dilation to 22 Fr
20 Fr Coude then successfully advanced into urinary bladder with recovery of 800 ml clear urine
Assessment / Plan
-
Post op urine retention: ER staff unable to establish catheter drainage
Diagnosis
-
Date of Service: March 25, 2024
-
Patient Diagnosis:
Urine retention s/p left TKR 03/21/24
No prior history of urologic surgery
Baseline voiding symptoms c/w prostatism: on no meds
Subjective
-
c/o some SP pressure
Has voided small amounts w/o relief
Objective
-
Vital Signs
Temp Pulse Resp BP Pulse Ox
98 F 73 14 108/83 98
03/25/24 16:23 03/25/24 18:06 03/25/24 18:06 03/25/24 19:00 03/25/24 19:00
Intake and Output
03/24/24 03/25/24 03/26/24
06:59 06:59 06:59
Intake Total 250 / 250
Balance 250 / 250
Intake:
Blood Product Amount Infused ( 250 / 250
mL)
Packed Rbc Leukoreduced Unit 250 / 250
[id number]
Laboratory Results
03/25/24 09:47
03/25/24 09:47
Review of Systems
-
Constitutional: No Symptoms
Respiratory: No Symptoms
Cardiac: No Symptoms
Abdomen/GI: No Symptoms
: Difficulty Voiding
Neurological: No Symptoms
Physical Exam
-
General - well developed, well nourished, no acute distress
Abdomen - soft, non-tender, no CVAT
Genitalia - normal
Skin - warm & dry with no rash
Counseling
-
Discussed with ER staff
Keep Cartagena
Outpatient voiding trial in 1 week
Advise 1 gram Rocephin due to recent left TKR
[2024-03-25] MEDS: ROCEPHIN 1000 MG IV (20:43)
[2024-03-25] MEDS: ULTRAM 50 MG PO (21:05)
== END 2024-03-25 22:42 | disposition home or self-care (01) ==
LOC: EMR 09:35
PROVIDERS: EMERGENCY PHYSICIAN Emergency Medicine; FAMILY PHYSICIAN Family Medicine; OTHER PHYSICIAN Specialist
DX: R55 Syncope and collapse (principal); D64.9 Anemia, unspecified; R33.8 Other retention of urine
CPT/HCPCS: 99291; 36430; 96374; 51702; 80053; 85025; 86850; 86900; 86901; 86920; 93005; P9016

== ENCOUNTER → 2024-03-27 10:39 | Outpatient (REF) | payer OTHER, SELFPAY ==
[2024-03-27 11:02] LABS: Hematocrit 24.4 % (39.0-52.0); Hemoglobin 8.4 g/dL (13.0-18.0); Mean Corp Hgb Conc. 34.4 g/dL (33.0-37.0); Mean Corpuscular Hgb 30.5 pg (27.0-31.0); Mean Corpuscular Volume 88.7 fL (80.0-94.0); Mean Platelet Volume 9.3 fL (7.4-10.4); Platelet Count 210 10^3/uL (130-400); Red Blood Cell Count 2.75 10^6/uL (4.70-6.10); Red Cell Dist. Width 14.3 % (11.5-14.5); White Blood Cell Count 6.4 10^3/uL (4.8-10.8)
[2024-03-27 11:11] LABS: Blood Urea Nitrogen 14 mg/dl (9-20); Calcium 8.4 mg/dl (8.4-10.2); Carbon Dioxide 27 mmol/L (22-30); Chloride 95 mmol/L (98-107); Glucose 89 mg/dl (70-99); Potassium 4.3 mmol/L (3.5-5.1); Sodium 126 mmol/L (135-145); eGFR > 60.00
== END ==
LOC: OLABP 10:39
PROVIDERS: ATTENDING PHYSICIAN Family Medicine
DX: Z47.1 Aftercare following joint replacement surgery (principal); M17.12 Unilateral primary osteoarthritis, left knee; M25.561 Pain in right knee; R26.2 Difficulty in walking, not elsewhere classified; G40.909 Epilepsy, unspecified, not intractable, without status epilepticus; E11.9 Type 2 diabetes mellitus without complications; I10 Essential (primary) hypertension; F32.9 Major depressive disorder, single episode, unspecified
CPT/HCPCS: 36415; 80048; 85027

== ENCOUNTER → 2024-04-04 12:03 | Outpatient (REF) | payer OTHER, MEDICARE, SELFPAY ==
[2024-04-04 13:03] LABS: % Basophils 0.5 % (0-2); % Eosinophils 1.2 % (0-6); % Immature Granulocytes 0.5 % (0-0.5); % Monocytes 12.5 % (1.7-9.3); % Neutrophils 78.3 % (42.2-75.2); Absolute Eosinophils 0.1 10^3/uL (0-0.7); Absolute Lymphocytes 0.3 10^3/uL (1.2-3.4); Absolute Monocytes 0.5 10^3/uL (0.1-0.6); Absolute Neutrophils 3.4 10^3/uL (1.4-6.5); Hematocrit 25.6 % (39.0-52.0); Hemoglobin 8.7 g/dL (13.0-18.0); Mean Corpuscular Hgb 30.2 pg (27.0-31.0); Mean Corpuscular Volume 88.9 fL (80.0-94.0); Mean Platelet Volume 8.7 fL (7.4-10.4); Nucleated Red Blood Cells % 0 % (-); Platelet Count 262 10^3/uL (130-400); Red Blood Cell Count 2.88 10^6/uL (4.70-6.10); Red Cell Dist. Width 14.3 % (11.5-14.5); White Blood Cell Count 4.3 10^3/uL (4.8-10.8)
[2024-04-04 13:11] LABS: Blood Urea Nitrogen 10 mg/dl (9-20); Calcium 8.6 mg/dl (8.4-10.2); Carbon Dioxide 25 mmol/L (22-30); Chloride 92 mmol/L (98-107); Glucose 79 mg/dl (70-99); Potassium 4.2 mmol/L (3.5-5.1); Sodium 123 mmol/L (135-145); eGFR > 60.00
== END ==
LOC: OLABP 12:03
PROVIDERS: ATTENDING PHYSICIAN Family Medicine
DX: Z47.1 Aftercare following joint replacement surgery (principal); M17.12 Unilateral primary osteoarthritis, left knee; M25.369 Other instability, unspecified knee; R26.2 Difficulty in walking, not elsewhere classified; G40.909 Epilepsy, unspecified, not intractable, without status epilepticus; E11.9 Type 2 diabetes mellitus without complications; I10 Essential (primary) hypertension; F32.9 Major depressive disorder, single episode, unspecified
CPT/HCPCS: 36415; 80048; 85025

== ENCOUNTER → 2024-04-06 12:47 | Outpatient (REF) | payer OTHER, MEDICARE, SELFPAY ==
[2024-04-06 13:35] LABS: % Basophils 0.5 % (0-2); % Immature Granulocytes 0.5 % (0-0.5); % Lymphocytes 10.5 % (20.5-51.1); % Monocytes 10.5 % (1.7-9.3); Absolute Lymphocytes 0.4 10^3/uL (1.2-3.4); Absolute Monocytes 0.4 10^3/uL (0.1-0.6); Absolute Neutrophils 3.3 10^3/uL (1.4-6.5); Hematocrit 28.1 % (39.0-52.0); Hemoglobin 9.5 g/dL (13.0-18.0); Mean Corp Hgb Conc. 33.8 g/dL (33.0-37.0); Mean Corpuscular Hgb 29.9 pg (27.0-31.0); Mean Corpuscular Volume 88.4 fL (80.0-94.0); Mean Platelet Volume 8.9 fL (7.4-10.4); Nucleated Red Blood Cells % 0 % (-); Platelet Count 274 10^3/uL (130-400); Red Blood Cell Count 3.18 10^6/uL (4.70-6.10); White Blood Cell Count 4.2 10^3/uL (4.8-10.8)
[2024-04-06 14:09] LABS: Blood Urea Nitrogen 10 mg/dl (9-20); Calcium 8.3 mg/dl (8.4-10.2); Carbon Dioxide 24 mmol/L (22-30); Chloride 92 mmol/L (98-107); Glucose 81 mg/dl (70-99); Potassium 4.3 mmol/L (3.5-5.1); Sodium 122 mmol/L (135-145); eGFR > 60.00
== END ==
LOC: OLABP 12:47
PROVIDERS: ATTENDING PHYSICIAN Family Medicine
DX: Z47.1 Aftercare following joint replacement surgery (principal); M17.12 Unilateral primary osteoarthritis, left knee; M25.369 Other instability, unspecified knee; R26.2 Difficulty in walking, not elsewhere classified; G40.909 Epilepsy, unspecified, not intractable, without status epilepticus; E11.9 Type 2 diabetes mellitus without complications; I10 Essential (primary) hypertension; F32.9 Major depressive disorder, single episode, unspecified
CPT/HCPCS: 36415; 80048; 85025

== ENCOUNTER → 2024-04-08 11:10 | Outpatient (REF) | payer OTHER, SELFPAY ==
[2024-04-08 11:44] LABS: Blood Urea Nitrogen 16 mg/dl (9-20); Calcium 8.5 mg/dl (8.4-10.2); Carbon Dioxide 23 mmol/L (22-30); Chloride 96 mmol/L (98-107); Glucose 88 mg/dl (70-99); Potassium 4.5 mmol/L (3.5-5.1); Sodium 125 mmol/L (135-145); eGFR > 60.00
== END ==
LOC: OLABP 11:10
PROVIDERS: ATTENDING PHYSICIAN Family Medicine
DX: Z47.1 Aftercare following joint replacement surgery (principal); M17.12 Unilateral primary osteoarthritis, left knee; M25.569 Pain in unspecified knee; M26.211 Malocclusion, Angle's class I; G40.409 Other generalized epilepsy and epileptic syndromes, not intractable, without status epilepticus; E11.9 Type 2 diabetes mellitus without complications; I10 Essential (primary) hypertension; F32.9 Major depressive disorder, single episode, unspecified
CPT/HCPCS: 80048

== ENCOUNTER → 2024-04-10 11:06 | Outpatient (REF) | payer OTHER, SELFPAY ==
[2024-04-10 11:25] LABS: % Basophils 0.4 % (0-2); % Eosinophils 1.3 % (0-6); % Immature Granulocytes 0.4 % (0-0.5); % Lymphocytes 9.9 % (20.5-51.1); % Monocytes 7.8 % (1.7-9.3); % Neutrophils 80.2 % (42.2-75.2); Absolute Eosinophils 0.1 10^3/uL (0-0.7); Absolute Lymphocytes 0.5 10^3/uL (1.2-3.4); Absolute Monocytes 0.4 10^3/uL (0.1-0.6); Absolute Neutrophils 4.3 10^3/uL (1.4-6.5); Hematocrit 26.9 % (39.0-52.0); Hemoglobin 9.2 g/dL (13.0-18.0); Mean Corp Hgb Conc. 34.2 g/dL (33.0-37.0); Mean Corpuscular Hgb 29.8 pg (27.0-31.0); Mean Corpuscular Volume 87.1 fL (80.0-94.0); Mean Platelet Volume 8.9 fL (7.4-10.4); Nucleated Red Blood Cells % 0 % (-); Platelet Count 277 10^3/uL (130-400); Red Blood Cell Count 3.09 10^6/uL (4.70-6.10); White Blood Cell Count 5.4 10^3/uL (4.8-10.8)
[2024-04-10 12:24] LABS: Blood Urea Nitrogen 9 mg/dl (9-20); Calcium 8.5 mg/dl (8.4-10.2); Carbon Dioxide 24 mmol/L (22-30); Chloride 94 mmol/L (98-107); Glucose 80 mg/dl (70-99); Potassium 4.2 mmol/L (3.5-5.1); Sodium 124 mmol/L (135-145); eGFR > 60.00
== END ==
LOC: OLABP 11:06
PROVIDERS: ATTENDING PHYSICIAN Family Medicine
DX: Z47.1 Aftercare following joint replacement surgery (principal); M17.12 Unilateral primary osteoarthritis, left knee; M25.369 Other instability, unspecified knee; R26.2 Difficulty in walking, not elsewhere classified; G40.909 Epilepsy, unspecified, not intractable, without status epilepticus; E11.9 Type 2 diabetes mellitus without complications; I10 Essential (primary) hypertension; F32.9 Major depressive disorder, single episode, unspecified
CPT/HCPCS: 36415; 80048; 85025

== ENCOUNTER → 2024-07-12 08:34 | Outpatient (REF) | payer MEDICARE, BC, SELFPAY ==
[2024-07-12 09:12] LABS: % Basophils 0.4 % (0-2); % Eosinophils 1.8 % (0-6); % Immature Granulocytes 0.2 % (0-0.5); % Lymphocytes 12.5 % (20.5-51.1); % Monocytes 5.4 % (1.7-9.3); % Neutrophils 79.7 % (42.2-75.2); Absolute Eosinophils 0.1 10^3/uL (0-0.7); Absolute Lymphocytes 0.6 10^3/uL (1.2-3.4); Absolute Monocytes 0.3 10^3/uL (0.1-0.6); Hematocrit 34.8 % (39.0-52.0); Hemoglobin 11.7 g/dL (13.0-18.0); Mean Corp Hgb Conc. 33.6 g/dL (33.0-37.0); Mean Corpuscular Hgb 29.3 pg (27.0-31.0); Mean Platelet Volume 9.4 fL (7.4-10.4); Nucleated Red Blood Cells % 0 % (-); Platelet Count 246 10^3/uL (130-400)
[2024-07-12 09:40] LABS: ALT (SGPT) 37 U/L (0-50); AST (SGOT) 29 U/L (17-59); Alkaline Phosphatase 101 U/L (38-126); Blood Urea Nitrogen 16 mg/dl (9-20); Calcium 9.8 mg/dl (8.4-10.2); Carbon Dioxide 27 mmol/L (22-30); Chloride 97 mmol/L (98-107); Glucose 98 mg/dl (70-99); HDL Cholesterol 63 mg/dl; LDL Cholesterol, Calculated 71 mg/dl; Potassium 5.5 mmol/L (3.5-5.1); Sodium 132 mmol/L (135-145); Total Bilirubin 0.3 mg/dl (0.2-1.3); Total Cholesterol 149 mg/dl (50-199); Total Protein 6.2 g/dl (6.3-8.2); Triglyceride 75 mg/dl (10-149); Very Low Density Lipoprotein 15 mg/dl (0-30); eGFR > 60.00
[2024-07-12 10:23] LABS: Glycohemoglobin (HgbA1c) 4.9 % (4.0-5.6)
[2024-07-12 11:01] LABS: Microalbumin, Random Urine > 57.0 mg/dl (0.6-1.7)
[2024-07-12 12:16] LABS: PSA, Total - Screen 1.08 ng/ml (0.0-4.0); TSH Reflex To Free T4 1.02 uIU/ml (0.47-4.68)
== END ==
LOC: REG 08:34
PROVIDERS: ATTENDING PHYSICIAN Family Medicine
DX: R73.9 Hyperglycemia, unspecified (principal); I10 Essential (primary) hypertension; Z12.5 Encounter for screening for malignant neoplasm of prostate; E11.9 Type 2 diabetes mellitus without complications; E78.00 Pure hypercholesterolemia, unspecified; R73.03 Prediabetes
CPT/HCPCS: 36415; 80053; 80061; 82043; 82570; 83036; 84443; 85025; G0103

== ENCOUNTER → 2024-12-21 07:23 | Outpatient (REF) | payer MEDICARE, BC, SELFPAY ==
[2024-12-21 08:37] LABS: ALT (SGPT) 29 U/L (0-50); AST (SGOT) 29 U/L (17-59); Albumin 3.9 g/dl (3.5-5.0); Alkaline Phosphatase 94 U/L (38-126); Blood Urea Nitrogen 14 mg/dl (9-20); Calcium 9.8 mg/dl (8.4-10.2); Carbon Dioxide 27 mmol/L (22-30); Chloride 98 mmol/L (98-107); Glucose 92 mg/dl (70-99); Sodium 132 mmol/L (135-145); Total Bilirubin 0.4 mg/dl (0.2-1.3); Total Protein 6.3 g/dl (6.3-8.2); eGFR > 60.00
== END ==
LOC: REG 07:23
PROVIDERS: ATTENDING PHYSICIAN Family Medicine; OTHER PHYSICIAN Specialist; REFERRING PHYSICIAN Internal Medicine Cardiovascular Disease
DX: E11.9 Type 2 diabetes mellitus without complications (principal)
CPT/HCPCS: 36415; 80053

== ENCOUNTER → 2025-06-19 07:07 | Outpatient (REF) | payer MEDICARE, BC, SELFPAY ==
[2025-06-19 09:38] LABS: ALT (SGPT) 33 U/L (0-50); AST (SGOT) 30 U/L (17-59); Albumin 4.1 g/dl (3.5-5.0); Alkaline Phosphatase 98 U/L (38-126); Blood Urea Nitrogen 14 mg/dl (9-20); Calcium 9.3 mg/dl (8.4-10.2); Carbon Dioxide 26 mmol/L (22-30); Chloride 100 mmol/L (98-107); Glucose 89 mg/dl (70-99); HDL Cholesterol 64 mg/dl; LDL Cholesterol, Calculated 69 mg/dl; Potassium 4.7 mmol/L (3.5-5.1); Sodium 130 mmol/L (135-145); Total Protein 6.3 g/dl (6.3-8.2); Very Low Density Lipoprotein 15 mg/dl (0-30); eGFR > 60.00
[2025-06-19 09:46] LABS: Hematocrit 34.4 % (39.0-52.0); Hemoglobin 11.9 g/dL (13.0-18.0); Mean Corp Hgb Conc. 34.6 g/dL (33.0-37.0); Mean Corpuscular Volume 92.0 fL (80.0-94.0); Nucleated Red Blood Cells % 0 % (-); Platelet Count 186 10^3/uL (130-400); Red Cell Dist. Width 13.3 % (11.5-14.5)
[2025-06-19 10:25] LABS: Glycohemoglobin (HgbA1c) 4.9 % (4.0-5.6)
== END ==
LOC: REG 07:07
PROVIDERS: ATTENDING PHYSICIAN Family Medicine; REFERRING PHYSICIAN Specialist
DX: I10 Essential (primary) hypertension (principal); D50.0 Iron deficiency anemia secondary to blood loss (chronic); E78.2 Mixed hyperlipidemia; E11.9 Type 2 diabetes mellitus without complications
CPT/HCPCS: 36415; 80053; 80061; 83036; 84443; 85025

== ENCOUNTER → 2025-07-19 06:58 | Outpatient (REF) | payer MEDICARE, BC, SELFPAY ==
[2025-07-19 09:01] LABS: Blood Urea Nitrogen 13 mg/dl (9-20); Calcium 9.6 mg/dl (8.4-10.2); Carbon Dioxide 28 mmol/L (22-30); Chloride 102 mmol/L (98-107); Glucose 94 mg/dl (70-99); Potassium 4.9 mmol/L (3.5-5.1); Sodium 135 mmol/L (135-145); eGFR > 60.00
== END ==
LOC: REG 06:58
PROVIDERS: ATTENDING PHYSICIAN Specialist; FAMILY PHYSICIAN Family Medicine
DX: G40.009 Localization-related (focal) (partial) idiopathic epilepsy and epileptic syndromes with seizures of localized onset, not intractable, without status epilepticus (principal)
CPT/HCPCS: 36415; 80048; 80183; 83930; 83935

== ENCOUNTER → 2025-07-30 14:44 | Outpatient (REF) | payer MEDICARE, BC, SELFPAY ==
[2025-07-30 16:07] LABS: Urine Character Cloudy (Clear)
[2025-07-30 16:22] LABS: Urine Squamous Cell 0-2 /LPF (Few)
[2025-07-30 16:23] LABS: Urine White Cell 26-30 /HPF (0-5)
== END ==
LOC: REG 14:44
PROVIDERS: ATTENDING PHYSICIAN Specialist; FAMILY PHYSICIAN Family Medicine
DX: N39.0 Urinary tract infection, site not specified (principal)
CPT/HCPCS: 81003; 81015; 87077; 87086; 87186